=== PATIENT | female | born 1950 | race Caucasian/White ===

== ENCOUNTER 2017-06-19 18:25 | Inpatient (IN) | payer OTHER, MEDICAID ==
[~2017-06-19] VITALS: Ht 167.6 cm; Wt 115.8 kg
--- NOTE | 2017-06-19 18:32 | ERA ---
ER Documentation Chief Complaint Date/Time DATE: 06/19/17 TIME: 18:32 Chief Complaint BIB RA C/O CHEST PAIN AND PRESSURE X 30MIN RADIATING TO JAW AND L SHOULDER HPI The patient is a 67-year-old female, presenting with bilateral upper chest pain radiating to her jaw happened about 30 minutes prior to arrival. She denies similar symptoms previously, 05/18, not associated with diaphoresis or vomiting or exertion. She denies abdominal pain, vomiting, dysuria, diarrhea. She does not smoke nor drink Past medical history: Osteoarthritis next Past surgical history: Cholecystectomy, ROS All systems reviewed and are negative except as per history of present illness. Medications Home Meds Reported Medications Magnesium Chloride* (Mag 64*) Unknown Strength Tabsr, 1 TAB PO DAILY, TAB 06/19/17 Potassium Chloride* (Potassium Chloride*) Unknown Strength Capsule.er, 2 CAP PO DAILY, CAP 06/19/17 Tramadol Hcl* (Ultram*) 50 Mg Tablet, 50 MG PO TID Y for PAIN, TAB 06/19/17 Allergies Allergies: Coded Allergies: No Known Allergy (Unverified , 06/19/17) Physical Exam Vitals Vital Signs Date Time Temp Pulse Resp B/P Pulse Ox O2 Delivery O2 Flow Rate FiO2 06/19/17 21:06 68 16 125/81 98 Room Air 06/19/17 20:00 49 16 86/40 97 Nasal Cannula 2.0 06/19/17 19:18 98.9 60 14 119/72 100 Room Air 06/19/17 18:28 98.9 86 20 128/76 100 Physical Exam Const: No acute distress. Head: Atraumatic. Eyes: Normal Conjunctiva. ENT: Normal External Ears, Nose and Mouth. Neck: Full range of motion. No meningismus. Resp: Clear to auscultation bilaterally. Cardio: Regular rate and rhythm. Abd: Soft, non distended, normal bowel sounds, non tender. Skin: No petechiae or rashes. Back: No midline or flank tenderness. Ext: No cyanosis, or edema. Neur: Awake and alert. No focal deficit Psych: Normal Mood and Affect. Result Diagram: 06/19/17 1296 06/19/17 1845 Results 24 hrs Laboratory Tests Test 06/19/17 18:45 White Blood Count 8.310^3/ul Red Blood Count 4.7110^6/ul Hemoglobin 15.0g/dl Hematocrit 44.0% Mean Corpuscular Volume 93.4fl Mean Corpuscular Hemoglobin 31.8pg Mean Corpuscular Hemoglobin Concent 34.1g/dl Red Cell Distribution Width 13.0% Platelet Count 40443^3/UL Mean Platelet Volume 9.7fl Neutrophils % 58.2% Lymphocytes % 31.9% Monocytes % 8.0% Eosinophils % 1.3% Basophils % 0.4% Nucleated Red Blood Cells % 0.0/100WBC Neutrophils # (Manual) 4.810^3/ul Lymphocytes # 2.610^3/ul Monocytes # 0.710^3/ul Eosinophils # 0.110^3/ul Basophils # 0.010^3/ul Nucleated Red Blood Cells # 0.010^3/ul Sodium Level 138mmol/L Potassium Level 3.3mmol/L Chloride Level 102mmol/L Carbon Dioxide Level 29mmol/L Anion Gap 10 Blood Urea Nitrogen 12mg/dl Creatinine 0.58mg/dl Glucose Level 123mg/dl Calcium Level 9.1mg/dl Troponin I < 0.012ng/ml Current Medications Medications (Trade) Dose Ordered Sig/Steve Route PRN Reason Start Time Stop Time Status Last Admin Dose Admin Nitroglycerin (Nitroglycerin 2% Oint) 1 inch ONCE ONCE TD 06/19/17 19:00 06/19/17 19:03 DC Aspirin (Aspirin) 162 mg ONCE ONCE PO 06/19/17 19:00 06/19/17 19:03 DC 06/19/17 19:11 Potassium Chloride 40 meq 40 meq ONCE STAT PO 06/19/17 19:28 06/19/17 19:29 DC 06/19/17 20:06 Sodium Chloride (NS) 1,000 ml @ 1,000 mls/hr Q1H ONCE IV 06/19/17 20:30 06/19/17 21:29 06/19/17 21:04 Morphine Sulfate (morphine) 2 mg ONCE ONCE IV 06/19/17 20:30 06/19/17 20:31 DC Ondansetron HCl (Zofran Inj) 4 mg ONCE STAT IV 06/19/17 20:06 06/19/17 20:07 DC Procedures/[place] [id number] Radiology Main Line: [phone] DIAGNOSTIC IMAGING REPORT Patient: JANEL MELENDREZ : 1950 Age: 67 Sex: F [id number] DOS: 06/19/17 1831 Ordering MD: ARON MORA MD Location: E/R Room/Bed: PROCEDURE: XR Chest. CLINICAL INDICATION: Chest pain. TECHNIQUE: Portable AP view of the chest was obtained. COMPARISON: None. FINDINGS: The cardiomediastinal silhouette is mildly enlarged. The lungs are clear. The right hemidiaphragm is slightly elevated. There is no evidence for pleural effusion, pneumothorax or pulmonary vascular congestion. The osseous structures are intact with no evidence for acute abnormality. Calcification is visible within the aorta. RPTAT:HJJR IMPRESSION: 1. Mild cardiac silhouette enlargement without evidence for acute intrathoracic pathology. 2. Aortic atherosclerosis is present. Physician Bull Date Time Electronically viewed and signed by Louis Murdock Physician on 06/19/2017 20:00 JR/ CC: ARON MORA MD EK hrs. Read by emergency physician Rate/Rhythm: Normal Sinus Rhythm 61 beats/min, low voltage QRS, ST, T-waves: No ST elevation, no T inversion Impression: Abnormal EKG EK hrs. Read by emergency physician Rate/Rhythm: Sinus bradycardia 49beats/min QRS, ST, T-waves: No ST elevation, no T inversion Impression: Abnormal EKG EK hrs. Read by emergency physician Rate/Rhythm: Sinus bradycardia 52 beats/min QRS, ST, T-waves: No ST elevation, no T inversion Impression: Abnormal EKG MEDICAL MAKING DECISION: The patient is a 77-year-old female, presenting with acute chest pain that is concerning for ACS, Acute hypokalemia. She was treated with aspirin 160 mg p.o. and 1 inch of nitroglycerin and potassium chloride 40 mg nightly for acute hypokalemia and 1 L normal saline for acute dehydration with good response The differential diagnoses considered include but are not limited to acute coronary syndrome, acute myocardial infarction, pericarditis, pulmonary embolism , aortic dissection, pneumonia, pleural effusion, pneumothorax, GERD, chest wall pain. Departure Diagnosis: Primary Impression: Chest pain Additional Impression: Hypokalemia Condition: Stable Comments I discussed the patient with the hospitalist from her IPA who authorized admission to the panel physician I discussed the findings with the patient. I discussed the patient with the on- call hospitalist Dr. Cole at 7:50 PM who was made aware of the lab, the treatment, the patient condition. The patient is admitted to telemetry ARON MORA MD Jun 19, 2017 18:32
[2017-06-19 18:54] LABS: BASOPHILS % 0.4 % (0.0-2.0); EOSINOPHILS # 0.1 10^3/ul (0.0-0.5); EOSINOPHILS % 1.3 % (0.0-7.0); LYMPHOCYTES # 2.6 10^3/ul (0.8-2.9); LYMPHOCYTES % 31.9 % (15.0-51.0); MEAN CORPUSCULAR HEMOGLOBIN 31.8 pg (29.0-33.0); MEAN CORPUSCULAR HGB CONC 34.1 g/dl (32.0-37.0); MEAN CORPUSCULAR VOLUME 93.4 fl (82.0-101.0); MEAN PLATELET VOLUME 9.7 fl (7.4-10.4); MONOCYTE # 0.7 10^3/ul (0.3-0.9); NEUTROPHILS % 58.2 % (39.0-77.0); PLATELET COUNT 232 10^3/UL (140-415); RED BLOOD COUNT 4.71 10^6/ul (4.20-5.40); WHITE BLOOD COUNT 8.3 10^3/ul (4.8-10.8)
[2017-06-19] MEDS ORDERED: NITROGLYCERIN 2% 1 GM OINT PKT TD ONE (19:00)
[2017-06-19] MEDS ORDERED: ASPIRIN 81 MG TAB PO ONE (19:00)
[2017-06-19 19:11] LABS: ANION GAP 10 (8-16); BLOOD UREA NITROGEN 12 mg/dl (7-20); CALCIUM 9.1 mg/dl (8.4-10.2); CARBON DIOXIDE 29 mmol/L (21-31); CHLORIDE 102 mmol/L (97-110); CREATININE 0.58 mg/dl (0.44-1.00); GLUCOSE 123 mg/dl (70-220); POTASSIUM 3.3 mmol/L (3.5-5.1); SODIUM 138 mmol/L (135-144)
[2017-06-19 19:18] VITALS: TEMP 98.9
[2017-06-19] MEDS ORDERED: TRAM-40 PO (19:18)
[2017-06-19] MEDS ORDERED: POTA8CAP PO (19:19)
[2017-06-19] MEDS ORDERED: SLOMAG PO (19:21)
[2017-06-19 19:27] LABS: TROPONIN-I < 0.012 ng/ml (0.00-0.12)
[2017-06-19] MEDS ORDERED: POTASSIUM CHLORIDE (SR) 20 MEQ TAB PO STA (19:28)
--- NOTE | 2017-06-19 20:00 | RADRPT ---
PROCEDURE: XR Chest. CLINICAL INDICATION: Chest pain. TECHNIQUE: Portable AP view of the chest was obtained. COMPARISON: None. FINDINGS: The cardiomediastinal silhouette is mildly enlarged. The lungs are clear. The right hemidiaphragm is slightly elevated. There is no evidence for pleural effusion, pneumothorax or pulmonary vascular congestion. The osseous structures are intact with no evidence for acute abnormality. Calcificatio n is visible within the aorta. RPTAT:HJJR IMPRESSION: 1. Mild cardiac silhouette enlargement without evidence for acute intrathoracic pathology. 2. Aortic atherosclerosis is present. Physician Bull Date Time Electronically viewed and signed by Physician Bull on 06/19/2017 20:00 /
[2017-06-19] MEDS ORDERED: ONDANSETRON 4 MG INJ IV STA (20:06)
[2017-06-19] MEDS ORDERED: morphine 2 MG INJ IV ONE (20:30)
[2017-06-19] MEDS ORDERED: SOD CHLORIDE 0.9% 1,000 ML IV ONE (20:30)
[2017-06-19 22:00] VITALS: BP 129/68; RESP 18
[2017-06-19 22:05] VITALS: PULSE 64
[2017-06-19 23:16] VITALS: Ht 167.6 cm; Wt 115.8 kg
[2017-06-20] VITALS (13 sets, daily range): BP systolic 105–133; BP diastolic 58–73; PULSE 59–77; RESP 18
[2017-06-20] MEDS ORDERED: CHOL400T10 PO (00:12)
[2017-06-20] MEDS ORDERED: NITROGLYCERIN (SL) 0.4 MG TAB SL PRN (01:00)
[2017-06-20] MEDS ORDERED: ONDANSETRON 4 MG INJ IV PRN (01:00)
[2017-06-20] MEDS ORDERED: morphine 2 MG INJ IV PRN ×2 (01:00→13:00)
[2017-06-20 01:05] LABS: CREATINE KINASE 222 IU/L (23-200)
[2017-06-20] MEDS: traMADol 50 MG TAB PO PRN ×3 (01:30→20:26)
[2017-06-20] MEDS ORDERED: ENOXAPARIN 40 MG/0.4 ML SYG SC SCH ×3 (01:33→09:00)
[2017-06-20] MEDS ORDERED: HEPARIN 1000 UNITS/ML 10 ML INJ IV PRN (04:00)
[2017-06-20] MEDS: HEPARIN 25000 UNITS/250 ML 250 ML IV SCH ×2 (04:54→16:52)
[2017-06-20 05:47] LABS: BASOPHILS % 0.2 % (0.0-2.0); EOSINOPHILS # 0.1 10^3/ul (0.0-0.5); HEMATOCRIT 39.8 % (37.0-47.0); HEMOGLOBIN 13.2 g/dl (12.0-16.0); LYMPHOCYTES % 16.3 % (15.0-51.0); MEAN CORPUSCULAR HEMOGLOBIN 31.3 pg (29.0-33.0); MEAN CORPUSCULAR HGB CONC 33.2 g/dl (32.0-37.0); MEAN CORPUSCULAR VOLUME 94.3 fl (82.0-101.0); MONOCYTE # 0.6 10^3/ul (0.3-0.9); MONOCYTES % 9.5 % (0.0-11.0); NEUTROPHILS % 72.7 % (39.0-77.0); PLATELET COUNT 202 10^3/UL (140-415); RED BLOOD COUNT 4.22 10^6/ul (4.20-5.40); RED CELL DISTRIBUTION WIDTH 13.2 % (11.5-14.5)
[2017-06-20 05:48] LABS: INR 1.06; PARTIAL THROMBOPLASTIN TIME 29.9 Sec (25.0-35.0); PROTIME 13.8 Sec (12.2-14.2); PT RATIO 1.1
[2017-06-20 05:59] LABS: CK-MB 29.7 ng/ml (0.0-2.4)
[2017-06-20 06:01] LABS: TROPONIN-I 8.85 ng/ml (0.00-0.12)
[2017-06-20 06:41] LABS: ALBUMIN/GLOBULIN RATIO 1.11; BILIRUBIN,INDIRECT 0.4 mg/dl (0-1.1); BILIRUBIN,TOTAL 0.4 mg/dl (0.2-1.3); CALCIUM 8.6 mg/dl (8.4-10.2); CREATININE 0.5 mg/dl (0.44-1.00); PHOSPHORUS 3.5 mg/dl (2.5-4.9); POTASSIUM 4.3 mmol/L (3.5-5.1); TOTAL PROTEIN 5.7 g/dl (6.1-8.1)
[2017-06-20 07:12] LABS: THYROID STIMULATING HORMONE 1.28 MIU/L (0.465-4.680)
[2017-06-20 07:59] LABS: BASOPHILS % 0.4 % (0.0-2.0); EOSINOPHILS # 0.1 10^3/ul (0.0-0.5); EOSINOPHILS % 1.1 % (0.0-7.0); HEMATOCRIT 41.2 % (37.0-47.0); HEMOGLOBIN 13.8 g/dl (12.0-16.0); LYMPHOCYTES # 1.2 10^3/ul (0.8-2.9); LYMPHOCYTES % 21.2 % (15.0-51.0); MEAN CORPUSCULAR HEMOGLOBIN 31.7 pg (29.0-33.0); MEAN CORPUSCULAR HGB CONC 33.5 g/dl (32.0-37.0); MEAN CORPUSCULAR VOLUME 94.7 fl (82.0-101.0); MONOCYTE # 0.5 10^3/ul (0.3-0.9); MONOCYTES % 8.7 % (0.0-11.0); NEUTROPHILS % 68.2 % (39.0-77.0); PLATELET COUNT 213 10^3/UL (140-415); RED BLOOD COUNT 4.35 10^6/ul (4.20-5.40); RED CELL DISTRIBUTION WIDTH 13.2 % (11.5-14.5); WHITE BLOOD COUNT 5.6 10^3/ul (4.8-10.8)
[2017-06-20] MEDS ORDERED: ASPIRIN 81 MG TAB PO SCH (09:00)
[2017-06-20] MEDS: CHOLECALCIFEROL 400 UNITS TAB PO SCH (09:20)
[2017-06-20] MEDS: POTASSIUM CHLORIDE (SR) 10 MEQ TAB PO SCH (09:20)
[2017-06-20] MEDS: MAGNESIUM CHLORIDE (SR) 64 MG TAB PO SCH (09:21)
--- NOTE | 2017-06-20 10:15 | HP ---
Date/Time of Note Date/Time of Note DATE: 06/20/17 TIME: 10:09 Assessment/Plan VTE Prophylaxis VTE Prophylaxis Intervention: other (Heparin drip) Lines/Catheters IV [facility]from [facility] [place] Assessment/Plan Assessment/Plan Assessment 65-year-old female who presented to his chest pain and now with NSTEMI with uptrending troponin. Plan -Continue heparin drip -2D echo and cardiology consult -Supplemental oxygen, beta-john, statin, with as needed nitro and morphine HPI/ROS Admit Date/Time Admit Date/Time Jun 19, 2017 at 23:01 Hx of Present Illness This is a 67-year-old female with no significant past medical history who presented to the emergency department complaining of chest pain. She said last night while she was sitting on a couch watching TV, she developed chest pain, located in the mid chest described as pressure-like/heaviness with radiation to her neck, jaw and left arm. She drank cold water thinking it was her stomach without any improvement in her pain. Denied associated shortness of breath, nausea, vomiting. Patient unsure if there is any exertional component to her pain. Since admission, her second troponin is found to be 7. Initial troponin was negative. EKG was sinus bradycardia, with no ST-T wave abnormality. She has been started on heparin drip. Vitals and basic labs within acceptable range. Chest x-ray showed Mild cardiac silhouette enlargement without evidence for acute intrathoracic pathology. PMH/Family/Social Social History Smoking Status: Former smoker Exam/Review of Systems Vital Signs Vitals Vital Signs Date Time Temp Pulse Resp B/P Pulse Ox O2 Delivery O2 Flow Rate FiO2 06/20/17 08:20 62 06/20/17 07:52 98.1 18 120/65 94 06/19/17 21:06 Room Air 06/19/17 20:00 2.0 Intake and Output 06/19/17 06/19/17 06/20/17 15:00 23:00 07:00 Intake Total 370 ml Balance 370 ml Exam Constitutional: alert, oriented, well developed Head: atraumatic, normocephalic Eyes: EOMI, PERRL Respiratory: clear to auscultation, normal air movement Cardiovascular: nl pulses, regular rate and rhythm Gastrointestinal: non-tender, soft Extremities: normal pulses Labs Result Diagram: 06/20/17 0702 06/20/17 0431 Medications Medications Current Medications Morphine Sulfate (morphine) 2 mg Q4H PRN IV PAIN; Start 06/20/17 at 01:00 Ondansetron HCl (Zofran Inj) 4 mg Q6H PRN IV NAUSEA AND/OR VOMITING; Start 09/24 at 01:00 Nitroglycerin (Nitroglycerin (Sl Tab) 0.4 Mg) 1 tab Q5M PRN SL ANGINA; Start at 01:00 Aspirin (Aspirin) 81 mg DAILY PO Last administered on 06/20/17 09:19; Admin Dose 81 MG; Start 06/20/17 at 09:00 Cholecalciferol (Vitamin D) 1,000 units DAILY PO Last administered on 09:20; Admin Dose 1,000 UNITS; Start 06/20/17 at 09:00 Tramadol HCl (Ultram) 50 mg Q6 PRN PO PAIN Last administered on 06/20/17 09:36 ; Admin Dose 50 MG; Start 06/20/17 at 01:00 Magnesium Chloride (Mag 64) 64 mg DAILY PO Last administered on 06/20/17 09:21 ; Admin Dose 64 MG; Start 06/20/17 at 09:00 Potassium Chloride (Klor-Con 10) 10 meq DAILY PO Last administered on 09:20; Admin Dose 10 MEQ; Start 06/20/17 at 09:00 CHER TROY MD Jun 20, 2017 10:15
[2017-06-20] MEDS: METOPROLOL 25 MG TAB PO SCH ×2 (10:30→20:25)
--- NOTE | 2017-06-20 15:57 | PN ---
Date/Time of Note Date/Time of Note DATE: 06/20/17 TIME: 15:49 Assessment/Plan VTE Prophylaxis VTE Prophylaxis Intervention: heparin Lines/Catheters IV Catheter Type (from Nrs): Peripheral IV Assessment/Plan Chief Complaint/Hosp Course 65-year-old female who presented to ER with chest pain and now with uptrending troponin. 1. -NSTEMI. -NPO for possible LHC. Cardiology consult -heparin htt, ASA, BB and statin.(LDL GOAL<100) -Dilaudid PRN (allergy to morphine) 2.Arthritis. Pain meds PRN. 3.Morbid Obesity Weight reduction advised. Plan:F/u with cardiology recs. Patient was seen in collaboration with . Problems: Subjective 24 Hr Interval Summary Free Text/Dictation Patient denies chest pain, palpitation or short of breath. Exam/Review of Systems Vital Signs Vitals Vital Signs Date Time Temp Pulse Resp B/P Pulse Ox O2 Delivery O2 Flow Rate FiO2 06/20/17 15:10 98.0 63 18 105/58 93 06/19/17 21:06 Room Air 06/19/17 20:00 2.0 Intake and Output 06/19/17 06/19/17 06/20/17 15:00 23:00 07:00 Intake Total 370 ml Balance 370 ml Exam General: Morbidly obese female, not in any acute distress . HEENT: Normocephalic, Atraumatic, No laceration or hematoma; Eyes: PEERL, Conjunctiva clear, Anicteric sclera Neck: Supple without any lymphadenopathy, nontender, no JVD, no carotid bruits, trachea midline, no thyromegaly Cardiac: S1, S2 auscultated, regular rhythm and rate, no mumurs or gallop Pulmonary: Normal respiratory effort. Chest clear to auscultation bilaterally, no adventitious breath sounds GI: Abdomen normal to inspection. Soft, non- distended, no masses, no rebound tenderness or guarding. Bowel sounds active on all four quadrants Genitourinary: Deferred Extremities: No cyanosis, clubbing, or edema. Pulses [2+] bilaterally. Full ROM on all four extremities. No focal weakness appreciated. Neurologic: Alert to person, place, time, and situation. Affect appropriate, intact sensation. Skin: Clean,dry, and intact. No ecchymosis, no rashes, or lesions Results Result Diagram: 06/20/17 0702 06/20/17 0431 Results 24 hrs Laboratory Tests Test 06/19/17 18:45 06/20/17 00:42 06/20/17 01:36 06/20/17 04:31 White Blood Count 8.3 6.0 # Red Blood Count 4.71 4.22 Hemoglobin 15.0 13.2 Hematocrit 44.0 39.8 Mean Corpuscular Volume 93.4 94.3 Mean Corpuscular Hemoglobin 31.8 31.3 Mean Corpuscular Hemoglobin Concent 34.1 33.2 Red Cell Distribution Width 13.0 13.2 Platelet Count 232 202 Mean Platelet Volume 9.7 10.0 Neutrophils % 58.2 72.7 Lymphocytes % 31.9 16.3 Monocytes % 8.0 9.5 Eosinophils % 1.3 1.0 Basophils % 0.4 0.2 Nucleated Red Blood Cells % 0.0 0.0 Neutrophils # (Manual) 4.8 4.4 Lymphocytes # 2.6 1.0 Monocytes # 0.7 0.6 Eosinophils # 0.1 0.1 Basophils # 0.0 0.0 Nucleated Red Blood Cells # 0.0 0.0 Sodium Level 138 140 Potassium Level 3.3 L 4.3 Chloride Level 102 108 Carbon Dioxide Level 29 30 Anion Gap 10 6 L Blood Urea Nitrogen 12 9 Creatinine 0.58 0.50 Glucose Level 123 109 Calcium Level 9.1 8.6 Troponin I < 0.012 7.450 *H 8.850 *H Creatine Kinase 222 H 278 H Creatine Kinase Index 11.4 10.7 Creatinine Kinase MB (Mass) 25.30 H 29.70 H Prothrombin Time 13.8 Prothrombin Time Ratio 1.1 INR International Normalized Ratio 1.06 Activated Partial Thromboplast Time 29.9 Hemoglobin A1c 5.3 Phosphorus Level 3.5 Magnesium Level 2.0 Total Bilirubin 0.4 Direct Bilirubin 0.00 Indirect Bilirubin 0.4 Aspartate Amino Transf (AST/SGOT) 46 Alanine Aminotransferase (ALT/SGPT) 29 Alkaline Phosphatase 77 Total Protein 5.7 L Albumin 3.0 L Globulin 2.70 Albumin/Globulin Ratio 1.11 Triglycerides Level 81 Cholesterol Level 168 LDL Cholesterol, Calculated 110 HDL Cholesterol 42 Cholesterol/HDL Ratio 4.0 Thyroid Stimulating Hormone (TSH) 1.280 Test 06/20/17 07:00 06/20/17 07:02 06/20/17 11:24 Troponin I 8.570 *H White Blood Count 5.6 Red Blood Count 4.35 Hemoglobin 13.8 Hematocrit 41.2 Mean Corpuscular Volume 94.7 Mean Corpuscular Hemoglobin 31.7 Mean Corpuscular Hemoglobin Concent 33.5 Red Cell Distribution Width 13.2 Platelet Count 213 Mean Platelet Volume 10.0 Neutrophils % 68.2 Lymphocytes % 21.2 Monocytes % 8.7 Eosinophils % 1.1 Basophils % 0.4 Nucleated Red Blood Cells % 0.0 Neutrophils # (Manual) 3.8 Lymphocytes # 1.2 Monocytes # 0.5 Eosinophils # 0.1 Basophils # 0.0 Nucleated Red Blood Cells # 0.0 Activated Partial Thromboplast Time 36.5 H Medications Medications Current Medications Ondansetron HCl (Zofran Inj) 4 mg Q6H PRN IV NAUSEA AND/OR VOMITING; Start 09/24 at 01:00 Nitroglycerin (Nitroglycerin (Sl Tab) 0.4 Mg) 1 tab Q5M PRN SL ANGINA; Start at 01:00 Aspirin (Aspirin) 81 mg DAILY PO Last administered on 06/20/17 09:19; Admin Dose 81 MG; Start 06/20/17 at 09:00 Cholecalciferol (Vitamin D) 1,000 units DAILY PO Last administered on 09:20; Admin Dose 1,000 UNITS; Start 06/20/17 at 09:00 Tramadol HCl (Ultram) 50 mg Q6 PRN PO PAIN Last administered on 06/20/17 09:36 ; Admin Dose 50 MG; Start 06/20/17 at 01:00 Magnesium Chloride (Mag 64) 64 mg DAILY PO Last administered on 06/20/17 09:21 ; Admin Dose 64 MG; Start 06/20/17 at 09:00 Potassium Chloride (Klor-Con 10) 10 meq DAILY PO Last administered on 09:20; Admin Dose 10 MEQ; Start 06/20/17 at 09:00 Metoprolol Tartrate (Lopressor) 12.5 mg BID PO ; Start 06/20/17 at 10:30 Atorvastatin Calcium (Lipitor) 20 mg HS PO ; Start 06/20/17 at 21:00 Atorvastatin Calcium (Lipitor) 10 mg HS PO ; Start 06/20/17 at 21:00 HENRY BAKER NP Jun 20, 2017 15:57
[2017-06-20] MEDS ORDERED: HYDROmorphONE 1 MG/ML SYG IV PRN (16:00)
--- NOTE | 2017-06-20 17:46 | RADRPT ---
Echocardiogram Report Patient Name: JANEL MELENDREZ Gender: Female Date: 1950 Study Date: 20-Jun-2017 Rn Mds Coordinator: [facility] Location: [id number] Ref. Physician: CHER TROY Quality: Adequate Procedures: Transthoracic echocardiogram with complete 2D, M-Mode, and doppler examination. Indications: NSTEMI. 2D/M Mode Doppler Measurement Value Normal Ranges Measurement Value Normal Ranges LVIDd 2D 5.0 3.5 - 5.6 cm AV Peak Caesar 1.4 m/sec LVIDs 2D 3.5 2.1 - 4.1 cm AV Peak PG 7.3 mmHg LVPWd 2D 1.0 0.6 - 1.1 cm LVOT Peak Caesar 1.1 m/sec IVSd 2D 1.0 0.6 - 1.1 cm LVOT Peak PG 4.6 mmHg AoR Diam 2D 2.8 2.0 - 3.7 cm MV E Peak Caesar 0.6 m/sec EDV 2D 119.7 cm3 MV A Peak Caesar 0.9 m/sec ESV 2D 41.7 cm3 MV E/A 0.6 MV Decel Time 228 msec MV Decel Frederick 3 MV E/A 0.6 TR Peak Caesar 2.3 m/sec TR Peak PG 21.7 mmHg RVSP 25.0 mmHg Findings Left Ventricle: Normal left ventricular systolic function. Normal left ventricular cavity size. Normal left ventricular wall thickness. Ejection fraction is visually estimated at 60 %. Tissue Doppler/Mitral Doppler indices are consistent with impaired relaxation (Stage I diastolic dysfunction). These segments of the LV are hypokinetic inferolateral base and inferolateral mid segment. Right Ventricle: Normal right ventricular size. Normal right ventricular systolic function. Left Atrium: The left atrium is normal in size. Right Atrium: The right atrium is normal in size. Mitral Valve: Mild mitral leaflet calcification. Mild mitral annular calcification. Trace mitral regurgitation. Aortic Valve: Normal appearance of the aortic valve. No significant aortic stenosis or insufficiency. Tricuspid Valve: Normal appearance of the tricuspid valve. Estimated peak PA systolic pressure 25 mmHg. There is mild tricuspid regurgitation. Pulmonic Valve: Pulmonic valve not well visualized. There is trace pulmonic regurgitation. Pericardium: Normal pericardium with no significant pericardial effusion. There is an anterior echo free space consistent with epicardial fat pad. Aorta: Normal aortic root. IVC: Normal size and normal respiratory collapse consistent with normal right atrial pressure. Conclusions 1.The left ventricle is normal in size and overall systolic function. 2.There is mild inferolateral wall hypokinesis. 3.Estimated left ventricular ejection fraction of 60%. 4.Grade 1 diastolic dysfunction. Electronically Signed By: Kwadwo Modi 20-Jun-2017 17:46:07 -0700 Patient Name: JANEL MELENDREZ Study Date: 20-Jun-2017 [id number]
[2017-06-20] MEDS ORDERED: ATORVASTATIN 20 MG TAB PO SCH (21:00)
[2017-06-20] MEDS ORDERED: ATORVASTATIN 10 MG TAB PO SCH (21:00)
--- NOTE | 2017-06-20 21:14 | CONS ---
Date/Time of Note Date/Time of Note DATE: 06/20/17 TIME: 21:08 Assessment/Plan Assessment/Plan Chief Complaint/Hosp Course Assessment: NSTEMI Morbid obesity Recommendations: -heparin drip -aspirin 325mg daily -atorvastatin 40mg daily -metoprolol 12.5mg BID -echocardiogram showed LVEF 60% with mild inferolateral hypokinesis -coronary angiography scheduled for tomorrow at 3:30pm Problems: Consultation Date/Type/Reason Admit Date/Time Jun 19, 2017 at 23:01 Type of Consultation: Cardiology Reason for Consultation elevated troponin Hx of Present Illness The patient is a 67 year-old female with no significant past medical history who presented with acute onset of chest pain. She describes a retrosternal chest pressure with radiation to her neck and jaw, onset while at rest. Her symptoms have now resolved. Troponin is up to 8.8. 14 point review of systems negative other than per HPI. Past Medical History Medical History: no pertinent history Past Surgical History Past Surgical Hx: cholecystectomy, other () Family History Significant Family History: no pertinent family hx Social History Smoking Status: Former smoker Exam/Review of Systems Vital Signs Vitals Vital Signs Date Time Temp Pulse Resp B/P Pulse Ox O2 Delivery O2 Flow Rate FiO2 06/20/17 20:15 77 06/20/17 20:00 99.0 18 133/72 93 06/19/17 21:06 Room Air 06/19/17 20:00 2.0 Intake and Output 06/19/17 06/19/17 06/20/17 15:00 23:00 07:00 Intake Total 370 ml Balance 370 ml Exam Constitutional: alert, obese Psych: nl mood/affect, no complaints Head: atraumatic, normocephalic Eyes: nl conjunctiva, nl lids ENMT: nl external ears & nose, nl nasal mucosa & septum Neck: non-tender, supple, No jvd Respiratory: clear to auscultation, normal air movement Cardiovascular: regular rate and rhythm Gastrointestinal: non-tender, soft Musculoskeletal: nl extremities to inspection Extremities: No clubbing, No cyanosis, No edema Neurological: nl mental status, nl speech Results Result Diagram: 06/20/17 0702 06/20/17 0431 Results 24 hrs Laboratory Tests Test 06/20/17 00:42 06/20/17 01:36 06/20/17 04:31 06/20/17 07:00 Creatine Kinase 222 H 278 H Creatine Kinase Index 11.4 10.7 Creatinine Kinase MB (Mass) 25.30 H 29.70 H Troponin I 7.450 *H 8.850 *H 8.570 *H White Blood Count 6.0 # Red Blood Count 4.22 Hemoglobin 13.2 Hematocrit 39.8 Mean Corpuscular Volume 94.3 Mean Corpuscular Hemoglobin 31.3 Mean Corpuscular Hemoglobin Concent 33.2 Red Cell Distribution Width 13.2 Platelet Count 202 Mean Platelet Volume 10.0 Neutrophils % 72.7 Lymphocytes % 16.3 Monocytes % 9.5 Eosinophils % 1.0 Basophils % 0.2 Nucleated Red Blood Cells % 0.0 Neutrophils # (Manual) 4.4 Lymphocytes # 1.0 Monocytes # 0.6 Eosinophils # 0.1 Basophils # 0.0 Nucleated Red Blood Cells # 0.0 Prothrombin Time 13.8 Prothrombin Time Ratio 1.1 INR International Normalized Ratio 1.06 Activated Partial Thromboplast Time 29.9 Sodium Level 140 Potassium Level 4.3 Chloride Level 108 Carbon Dioxide Level 30 Anion Gap 6 L Blood Urea Nitrogen 9 Creatinine 0.50 Glucose Level 109 Hemoglobin A1c 5.3 Calcium Level 8.6 Phosphorus Level 3.5 Magnesium Level 2.0 Total Bilirubin 0.4 Direct Bilirubin 0.00 Indirect Bilirubin 0.4 Aspartate Amino Transf (AST/SGOT) 46 Alanine Aminotransferase (ALT/SGPT) 29 Alkaline Phosphatase 77 Total Protein 5.7 L Albumin 3.0 L Globulin 2.70 Albumin/Globulin Ratio 1.11 Triglycerides Level 81 Cholesterol Level 168 LDL Cholesterol, Calculated 110 HDL Cholesterol 42 Cholesterol/HDL Ratio 4.0 Thyroid Stimulating Hormone (TSH) 1.280 Test 06/20/17 07:02 06/20/17 11:24 White Blood Count 5.6 Red Blood Count 4.35 Hemoglobin 13.8 Hematocrit 41.2 Mean Corpuscular Volume 94.7 Mean Corpuscular Hemoglobin 31.7 Mean Corpuscular Hemoglobin Concent 33.5 Red Cell Distribution Width 13.2 Platelet Count 213 Mean Platelet Volume 10.0 Neutrophils % 68.2 Lymphocytes % 21.2 Monocytes % 8.7 Eosinophils % 1.1 Basophils % 0.4 Nucleated Red Blood Cells % 0.0 Neutrophils # (Manual) 3.8 Lymphocytes # 1.2 Monocytes # 0.5 Eosinophils # 0.1 Basophils # 0.0 Nucleated Red Blood Cells # 0.0 Activated Partial Thromboplast Time 36.5 H Medications Medications Current Medications Ondansetron HCl (Zofran Inj) 4 mg Q6H PRN IV NAUSEA AND/OR VOMITING; Start 09/24 at 01:00 Nitroglycerin (Nitroglycerin (Sl Tab) 0.4 Mg) 1 tab Q5M PRN SL ANGINA; Start at 01:00 Cholecalciferol (Vitamin D) 1,000 units DAILY PO Last administered on 09:20; Admin Dose 1,000 UNITS; Start 06/20/17 at 09:00 Tramadol HCl (Ultram) 50 mg Q6 PRN PO PAIN Last administered on 06/20/17 20:26 ; Admin Dose 50 MG; Start 06/20/17 at 01:00 Magnesium Chloride (Mag 64) 64 mg DAILY PO Last administered on 06/20/17 09:21 ; Admin Dose 64 MG; Start 06/20/17 at 09:00 Potassium Chloride (Klor-Con 10) 10 meq DAILY PO Last administered on 09:20; Admin Dose 10 MEQ; Start 06/20/17 at 09:00 Metoprolol Tartrate (Lopressor) 12.5 mg BID PO Last administered on 06/20/17 20:25; Admin Dose 12.5 MG; Start 06/20/17 at 10:30 Hydromorphone HCl (Dilaudid) 1 mg Q4H PRN IV PAIN; Start 06/20/17 at 16:00 Aspirin (Aspirin) 325 mg DAILY PO ; Start 06/21/17 at 09:00; Status UNV Atorvastatin Calcium (Lipitor) 40 mg HS PO ; Start 06/21/17 at 21:00; Status UNV DECLAN GARCIA MD Jun 20, 2017 21:13
[2017-06-20] MEDS: ATORVASTATIN 40 MG TAB PO SCH (21:24)
[2017-06-21] VITALS (20 sets, daily range): BP systolic 108–144; BP diastolic 59–103; PULSE 48–88; RESP 14–27
[2017-06-21] MEDS: SOD CHLORIDE 0.9% 1,000 ML IV SCH ×5 (01:52→20:59)
[2017-06-21] MEDS: HEPARIN 25000 UNITS/250 ML 250 ML IV SCH ×2 (01:56→06:51)
[2017-06-21 07:00] LABS: CALCIUM 8.5 mg/dl (8.4-10.2); CREATININE 0.58 mg/dl (0.44-1.00)
[2017-06-21 07:12] LABS: TROPONIN-I 1.94 ng/ml (0.00-0.12)
[2017-06-21 07:38] LABS: BASOPHILS % 0.3 % (0.0-2.0); EOSINOPHILS # 0.1 10^3/ul (0.0-0.5); EOSINOPHILS % 2.3 % (0.0-7.0); HEMATOCRIT 40.3 % (37.0-47.0); HEMOGLOBIN 13.3 g/dl (12.0-16.0); LYMPHOCYTES # 1.3 10^3/ul (0.8-2.9); LYMPHOCYTES % 20.9 % (15.0-51.0); MEAN CORPUSCULAR HEMOGLOBIN 31.3 pg (29.0-33.0); MEAN CORPUSCULAR VOLUME 94.8 fl (82.0-101.0); MEAN PLATELET VOLUME 10.2 fl (7.4-10.4); MONOCYTE # 0.5 10^3/ul (0.3-0.9); MONOCYTES % 8.1 % (0.0-11.0); NEUTROPHILS % 67.8 % (39.0-77.0); PLATELET COUNT 195 10^3/UL (140-415); RED BLOOD COUNT 4.25 10^6/ul (4.20-5.40); RED CELL DISTRIBUTION WIDTH 13.4 % (11.5-14.5); WHITE BLOOD COUNT 6.2 10^3/ul (4.8-10.8)
[2017-06-21] MEDS ORDERED: ASPIRIN 325 MG TAB PO SCH (09:00)
[2017-06-21] MEDS: CHOLECALCIFEROL 400 UNITS TAB PO SCH (09:03)
[2017-06-21] MEDS: METOPROLOL 25 MG TAB PO SCH ×2 (09:04→20:29)
[2017-06-21] MEDS: MAGNESIUM CHLORIDE (SR) 64 MG TAB PO SCH (09:04)
[2017-06-21] MEDS: POTASSIUM CHLORIDE (SR) 10 MEQ TAB PO SCH (09:04)
--- NOTE | 2017-06-21 11:09 | PN ---
Date/Time of Note Date/Time of Note DATE: 06/21/17 TIME: 11:08 Assessment/Plan VTE Prophylaxis VTE Prophylaxis Intervention: heparin Lines/Catheters IV Catheter Type (from Nrs): Peripheral IV Assessment/Plan Chief Complaint/Hosp Course 65-year-old female who presented to ER with chest pain and now with uptrending troponin. 1. -NSTEMI. Troponin trending down. -Cardiology eval appreciated. For [facility] this afternoon -Continue heparin htt, ASA, BB and statin.(LDL GOAL<100) -Dilaudid PRN (allergy to morphine) 2.Arthritis. Pain meds PRN. 3.Morbid Obesity Weight reduction advised. Plan:F/u with cardiology recs. Patient was seen in collaboration with . Problems: Subjective 24 Hr Interval Summary Free Text/Dictation No further chest pain or palpitation. Exam/Review of Systems Vital Signs Vitals Vital Signs Date Time Temp Pulse Resp B/P Pulse Ox O2 Delivery O2 Flow Rate FiO2 06/21/17 08:30 96 Room Air 06/21/17 08:13 67 06/21/17 07:57 98.2 20 117/62 06/19/17 20:00 2.0 Intake and Output 06/20/17 06/20/17 06/21/17 15:00 23:00 07:00 Intake Total 920 ml 425 ml Balance 920 ml 425 ml Exam General: Morbidly obese female, not in any acute distress . HEENT: Normocephalic, Atraumatic, No laceration or hematoma; Eyes: PEERL, Conjunctiva clear, Anicteric sclera Neck: Supple without any lymphadenopathy, nontender, no JVD, no carotid bruits, trachea midline, no thyromegaly Cardiac: S1, S2 auscultated, regular rhythm and rate, no mumurs or gallop Pulmonary: Normal respiratory effort. Chest clear to auscultation bilaterally, no adventitious breath sounds GI: Abdomen normal to inspection. Soft, non- distended, no masses, no rebound tenderness or guarding. Bowel sounds active on all four quadrants Genitourinary: Deferred Extremities: No cyanosis, clubbing, or edema. Pulses [2+] bilaterally. Full ROM on all four extremities. No focal weakness appreciated. Neurologic: Alert to person, place, time, and situation. Affect appropriate, intact sensation. Skin: Clean,dry, and intact. No ecchymosis, no rashes, or lesions Results Result Diagram: 06/21/17 0703 06/21/17 0611 Results 24 hrs Laboratory Tests Test 06/20/17 11:24 06/20/17 23:43 06/21/17 06:11 06/21/17 07:03 Activated Partial Thromboplast Time 36.5 H 138.6 *H 72.9 *H Sodium Level 141 Potassium Level 4.0 Chloride Level 108 Carbon Dioxide Level 31 Anion Gap 6 L Blood Urea Nitrogen 7 Creatinine 0.58 Glucose Level 86 Calcium Level 8.5 Magnesium Level 2.0 Troponin I 1.940 *H White Blood Count 6.2 Red Blood Count 4.25 Hemoglobin 13.3 Hematocrit 40.3 Mean Corpuscular Volume 94.8 Mean Corpuscular Hemoglobin 31.3 Mean Corpuscular Hemoglobin Concent 33.0 Red Cell Distribution Width 13.4 Platelet Count 195 Mean Platelet Volume 10.2 Neutrophils % 67.8 Lymphocytes % 20.9 Monocytes % 8.1 Eosinophils % 2.3 Basophils % 0.3 Nucleated Red Blood Cells % 0.0 Neutrophils # (Manual) 4.2 Lymphocytes # 1.3 Monocytes # 0.5 Eosinophils # 0.1 Basophils # 0.0 Nucleated Red Blood Cells # 0.0 Medications Medications Current Medications Ondansetron HCl (Zofran Inj) 4 mg Q6H PRN IV NAUSEA AND/OR VOMITING; Start 09/24 at 01:00 Nitroglycerin (Nitroglycerin (Sl Tab) 0.4 Mg) 1 tab Q5M PRN SL ANGINA; Start at 01:00 Cholecalciferol (Vitamin D) 1,000 units DAILY PO Last administered on 09:03; Admin Dose 1,000 UNITS; Start 06/20/17 at 09:00 Tramadol HCl (Ultram) 50 mg Q6 PRN PO PAIN Last administered on 06/20/17 20:26 ; Admin Dose 50 MG; Start 06/20/17 at 01:00 Magnesium Chloride (Mag 64) 64 mg DAILY PO Last administered on 06/21/17 09:04 ; Admin Dose 64 MG; Start 06/20/17 at 09:00 Potassium Chloride (Klor-Con 10) 10 meq DAILY PO Last administered on 09:04; Admin Dose 10 MEQ; Start 06/20/17 at 09:00 Metoprolol Tartrate (Lopressor) 12.5 mg BID PO Last administered on 06/21/17 09:04; Admin Dose 12.5 MG; Start 06/20/17 at 10:30 Hydromorphone HCl (Dilaudid) 1 mg Q4H PRN IV PAIN; Start 06/20/17 at 16:00 Aspirin (Aspirin) 325 mg DAILY PO Last administered on 06/21/17 09:04; Admin Dose 325 MG; Start 06/21/17 at 09:00 Atorvastatin Calcium 40 mg 40 mg DAILY@21 PO ; Start 06/20/17 at 21:24 Sodium Chloride (NS) 1,000 ml @ 100 mls/hr Q10H IV Last administered on 09:03; Admin Dose 100 MLS/HR; Start 06/21/17 at 00:00 HENRY BAKER NP Jun 21, 2017 11:09
[2017-06-21] MEDS: traMADol 50 MG TAB PO PRN ×2 (11:53→20:59)
--- NOTE | 2017-06-21 14:54 | CONS ---
Date/Time of Note Date/Time of Note DATE: 06/21/17 TIME: 14:52 Assessment/Plan Assessment/Plan Chief Complaint/Hosp Course Assessment: NSTEMI Morbid obesity Recommendations: -heparin drip -aspirin 325mg daily -atorvastatin 40mg daily -metoprolol 12.5mg BID -echocardiogram showed LVEF 60% with mild inferolateral hypokinesis -coronary angiography today Problems: Consultation Date/Type/Reason Admit Date/Time Jun 19, 2017 at 23:01 Initial Consult Date Type of Consultation: Cardiology 24 HR Interval Summary Free Text/Dictation No acute events. No further chest pain. Troponin peaked at 8.8 and downtrending. Detailed Summary Additional Comments 14 point review of systems without changes. Exam/Review of Systems Vital Signs Vitals Vital Signs Date Time Temp Pulse Resp B/P Pulse Ox O2 Delivery O2 Flow Rate FiO2 06/21/17 12:39 48 06/21/17 11:32 98.4 20 132/99 96 06/21/17 08:30 Room Air 06/19/17 20:00 2.0 Intake and Output 06/20/17 06/20/17 06/21/17 15:00 23:00 07:00 Intake Total 920 ml 425 ml Balance 920 ml 425 ml Exam Constitutional: alert, obese Psych: nl mood/affect, no complaints Head: atraumatic, normocephalic Eyes: nl conjunctiva, nl lids ENMT: nl external ears & nose, nl nasal mucosa & septum Neck: non-tender, supple, No jvd Respiratory: clear to auscultation, normal air movement Cardiovascular: regular rate and rhythm Gastrointestinal: non-tender, soft Musculoskeletal: nl extremities to inspection Extremities: No clubbing, No cyanosis, No edema Neurological: nl mental status, nl speech Results Result Diagram: 06/21/17 0703 06/21/17 0611 Results 24 hrs Laboratory Tests Test 06/20/17 23:43 06/21/17 06:11 06/21/17 07:03 Activated Partial Thromboplast Time 138.6 *H 72.9 *H Sodium Level 141 Potassium Level 4.0 Chloride Level 108 Carbon Dioxide Level 31 Anion Gap 6 L Blood Urea Nitrogen 7 Creatinine 0.58 Glucose Level 86 Calcium Level 8.5 Magnesium Level 2.0 Troponin I 1.940 *H White Blood Count 6.2 Red Blood Count 4.25 Hemoglobin 13.3 Hematocrit 40.3 Mean Corpuscular Volume 94.8 Mean Corpuscular Hemoglobin 31.3 Mean Corpuscular Hemoglobin Concent 33.0 Red Cell Distribution Width 13.4 Platelet Count 195 Mean Platelet Volume 10.2 Neutrophils % 67.8 Lymphocytes % 20.9 Monocytes % 8.1 Eosinophils % 2.3 Basophils % 0.3 Nucleated Red Blood Cells % 0.0 Neutrophils # (Manual) 4.2 Lymphocytes # 1.3 Monocytes # 0.5 Eosinophils # 0.1 Basophils # 0.0 Nucleated Red Blood Cells # 0.0 Medications Medications Current Medications Ondansetron HCl (Zofran Inj) 4 mg Q6H PRN IV NAUSEA AND/OR VOMITING; Start 09/24 at 01:00 Nitroglycerin (Nitroglycerin (Sl Tab) 0.4 Mg) 1 tab Q5M PRN SL ANGINA; Start at 01:00 Cholecalciferol (Vitamin D) 1,000 units DAILY PO Last administered on 09:03; Admin Dose 1,000 UNITS; Start 06/20/17 at 09:00 Tramadol HCl (Ultram) 50 mg Q6 PRN PO PAIN Last administered on 06/21/17 11:53 ; Admin Dose 50 MG; Start 06/20/17 at 01:00 Magnesium Chloride (Mag 64) 64 mg DAILY PO Last administered on 06/21/17 09:04 ; Admin Dose 64 MG; Start 06/20/17 at 09:00 Potassium Chloride (Klor-Con 10) 10 meq DAILY PO Last administered on 09:04; Admin Dose 10 MEQ; Start 06/20/17 at 09:00 Metoprolol Tartrate (Lopressor) 12.5 mg BID PO Last administered on 06/21/17 09:04; Admin Dose 12.5 MG; Start 06/20/17 at 10:30 Hydromorphone HCl (Dilaudid) 1 mg Q4H PRN IV PAIN; Start 06/20/17 at 16:00 Aspirin (Aspirin) 325 mg DAILY PO Last administered on 06/21/17 09:04; Admin Dose 325 MG; Start 06/21/17 at 09:00 Atorvastatin Calcium 40 mg 40 mg DAILY@21 PO ; Start 06/20/17 at 21:24 Sodium Chloride (NS) 1,000 ml @ 100 mls/hr Q10H IV Last administered on t 09:03; Admin Dose 100 MLS/HR; Start 06/21/17 at 00:00 DECLAN GARCIA MD Jun 21, 2017 14:54
[2017-06-21] MEDS ORDERED: MIDAZOLAM 1 MG/ML 2 ML INJ ONE (15:22)
[2017-06-21] MEDS ORDERED: LIDOCAINE 1% (MDV) 20 ML INJ ONE (15:22)
[2017-06-21] MEDS ORDERED: HEPARIN 1000 UNITS/NS (A-LINE) 1,000 ML ONE (15:22)
[2017-06-21] MEDS ORDERED: FENTAnyl 50 MCG/ML VIAL ONE (15:22)
[2017-06-21] MEDS ORDERED: VERAPAMIL 5 MG INJ ONE (15:22)
[2017-06-21] MEDS ORDERED: IODIXANOL LOCM 100 ML BTL ONE ×2 (15:22→16:14)
[2017-06-21] MEDS ORDERED: HEPARIN 1000 UNITS/ML 10 ML INJ ONE (15:22)
[2017-06-21] MEDS ORDERED: NITROGLYCERIN (IC) 100 MCG/ML INJ ONE (15:23)
[2017-06-21] MEDS ORDERED: TICAGRELOR 90 MG TABLET ONE (16:00)
[2017-06-21] MEDS ORDERED: BIVALIRUDIN 250MG /NS 50 ML 100 ML IVPB ONE (16:14)
[2017-06-21] MEDS ORDERED: IOHEXOL 350MG/ML 50 ML BTL ONE (16:14)
--- NOTE | 2017-06-21 16:53 | OPR ---
Date/Time of Note Date/Time of Note DATE: 06/21/17 TIME: 16:47 Operative Report Free Text/Dictation Procedure Date:06/21/2017 Procedures Performed: 1)Left heart catheterization with selective left and right coronary angiography. 2)Balloon angioplasty and stenting of the distal RCA with an Morley 2.5 x12 drug- eluting stent. Pre-operative Diagnosis:NSTEMI Post-operative Diagnosis:NSTEMI s/p PCI of distal RCA Indications:67 yo F who presented with chest pain and was found to have an NSTEMI with trop up to 8. Description of Procedure: After informed consent, the patient was brought to the cardiac catheterization lab. The procedure site was prepped and draped in usual manner. The patient was premedicated with fentanyl 50 mcg. 3 mL lidocaine was injected into the left wrist. Next using the posterior wall technique, the 6/5 nauruan sheath was inserted into the left radial artery. Next using the JL3.5 and JR4, selective angiography of the left and right coronary arteries were obtained. Hemodynamics were obtained with the JR guide catheter. The decision was made to proceed with PCI of the RCA due to NSTEMI and the occlusive nature of the lesion. A 6 nauruan JR 4 guide was advanced and engaged into the right coronary artery. After appropriate anticoagulation and antiplatelets were given, the PT 2 LS angioplasty wire was advanced past the lesion. Next the 2.0 X 12 balloon was used to dilate the lesion times 2 at a maximum of 10 valerio. Subsequently, the Gonzalez 2.5 x 12 stent was advanced to the lesion and deployed at 12 valerio. Next the stent was post dilated with the 2.5 X 6 noncompliant balloon times 2 at a maximum of 12 valerio. Final angiography revealed ANANT 3 flow, no edge dissection, and appropriate stent expansion. Next all equipment was removed and hemostasis was achieved by TR band. Findings: Anatomy/Hemodynamics: Left main:luminal irregularities LAD:luminal irregularities Diagonal:luminal irregularities Circumflex:luminal irregularities Obtuse marginal:luminal irregularities RCA:distal subtotal 99-100% with contrast staining and left-right collaterals LV angiography:not done LV-Ao: no gradient LVEDP: 7 mmHg Contrast used: 115mL Medications used: Fentanyl 50mcg heparin 5000, NTG 200, verapamil 2.5 Angiomax bolus plus drip ASA already given in am ticagrelor 180mg NTG 100mcg IC Equipment used: 6 nauruan JR4 guide PT 2 LS angioplasty wire 2 x 12 balloon Gonzalez 2.5 x 12 drug eluting stent 2.5 x 6 noncompliant balloon Assessment: NSTEMI s/p PCI of distal RCA CAD: no residual lesions Plan: -ICU observation overnight -can d/c in am if no complications -ASA 81mg lifelong -ticagrelor 90mg BID 1 year -COLE duque VAHAN Jun 21, 2017 16:53
[2017-06-21] MEDS ORDERED: ONDANSETRON 4 MG INJ IV PRN (17:00)
[2017-06-21] MEDS ORDERED: ACETAMINOPHEN 325 MG TAB PO PRN (17:00)
[2017-06-21] MEDS ORDERED: morphine 2 MG INJ IV PRN (17:00)
[2017-06-21] MEDS: ATORVASTATIN 40 MG TAB PO SCH (20:28)
[2017-06-21] MEDS: TICAGRELOR 90 MG TABLET PO SCH (20:30)
[2017-06-22] VITALS (15 sets, daily range): BP systolic 82–149; BP diastolic 59–100; PULSE 49–82; RESP 15–21
[2017-06-22 05:22] LABS: BASOPHILS % 0.3 % (0.0-2.0); EOSINOPHILS # 0.1 10^3/ul (0.0-0.5); HEMATOCRIT 40.7 % (37.0-47.0); HEMOGLOBIN 13.5 g/dl (12.0-16.0); LYMPHOCYTES % 16.2 % (15.0-51.0); MEAN CORPUSCULAR HGB CONC 33.2 g/dl (32.0-37.0); MEAN CORPUSCULAR VOLUME 93.6 fl (82.0-101.0); MONOCYTE # 0.5 10^3/ul (0.3-0.9); MONOCYTES % 8.8 % (0.0-11.0); NEUTROPHIL # 4.3 10^3/ul (1.6-7.5); NEUTROPHILS % 72.4 % (39.0-77.0); PLATELET COUNT 182 10^3/UL (140-415); RED BLOOD COUNT 4.35 10^6/ul (4.20-5.40); RED CELL DISTRIBUTION WIDTH 13.1 % (11.5-14.5)
[2017-06-22] MEDS: SOD CHLORIDE 0.9% 1,000 ML IV SCH (05:32)
[2017-06-22 05:45] LABS: CALCIUM 8.8 mg/dl (8.4-10.2); CREATININE 0.56 mg/dl (0.44-1.00)
[2017-06-22] MEDS ORDERED: ASPIRIN 81 MG TAB PO SCH (09:00)
[2017-06-22] MEDS: POTASSIUM CHLORIDE (SR) 10 MEQ TAB PO SCH (09:17)
[2017-06-22] MEDS: CHOLECALCIFEROL 400 UNITS TAB PO SCH (09:17)
[2017-06-22] MEDS: TICAGRELOR 90 MG TABLET PO SCH (09:18)
[2017-06-22] MEDS: MAGNESIUM CHLORIDE (SR) 64 MG TAB PO SCH (09:20)
[2017-06-22] MEDS: METOPROLOL 25 MG TAB PO SCH (09:20)
--- NOTE | 2017-06-22 09:49 | PDOCDIS ---
Discharge Instructions CONDITION Patient Condition: Stable HOME CARE INSTRUCTIONS: Special Diet: LOW CHOLESTEROL LOW FAT DIET FOLLOW UP/APPOINTMENTS Follow-up Plan 1.Follow up with primary care physician in 1 week If you don't have one please let someone know, we can give you resources that may help you pick one. You may also call your insurance company to assign one to you. Review your medication list with your nurse before leaving and if you need new prescriptions please let your nurse know. I may have made changes to your home medications or given you new prescriptions, please let your primary doctor know as well. Stay compliant with your medications and report any side effects to your PCP or pharmacist. Return to the ER if you have any concerns and cannot reach your doctors or call your insurance company, they usually have a nurse that can help you. 2. Call 911 or go to the nearest emergency room if experiencing loss of consciousness, dizziness, chest pain, shortness of breath, vomiting/abdominal pain, speech difficulties, motor weakness or any unusual symptoms. REFERRALS Other Referrals Follow-up with in 2 weeks [address] [facility] [place] [address] Office HENRY BAKER NP Jun 22, 2017 09:49
[2017-06-22] MEDS ORDERED: ASPI81TA3 PO (09:52)
[2017-06-22] MEDS ORDERED: ATOR40TA68 PO (09:52)
[2017-06-22] MEDS ORDERED: METO-448 PO (09:52)
[2017-06-22] MEDS ORDERED: TICA90TA PO (09:52)
== END 2017-06-22 13:25 | disposition home or self-care (01) | DRG 247 ==
LOC: E/R 18:25 → TEL 22:45 → E/R 23:00 → TEL 23:01 → ICU 06-21 16:37
PROVIDERS: ADMIT Internal Medicine; ATTEND Internal Medicine
PROC: B2011ZZ Plain Radiography of Multiple Coronary Arteries using Low Osmolar Contrast (ICD-10-PCS; 2017-06-21)
PROC: 027034Z Dilation of Coronary Artery, One Artery with Drug-eluting Intraluminal Device, Percutaneous Approach (ICD-10-PCS; principal; 2017-06-21 15:30)
PROC: 4A023N7 Measurement of Cardiac Sampling and Pressure, Left Heart, Percutaneous Approach (ICD-10-PCS; 2017-06-21 15:30)
DX: I21.4 Non-ST elevation (NSTEMI) myocardial infarction (principal); Z68.41 Body mass index [BMI] 40.0-44.9, adult; E66.01 Morbid (severe) obesity due to excess calories; I25.10 Atherosclerotic heart disease of native coronary artery without angina pectoris; E87.6 Hypokalemia; E86.0 Dehydration
CPT/HCPCS: 36415; 71010; 80048; 80053; 80061; 82550; 82553; 83036; 83735; 84100; 84443; 84484; 85025; 85610; 85730; 87081; 93005; 93306; 93458; C1725; C1887; C9600; J0583; J1644; J1650; J2250; J2270; J3010; J7030; Q9967